=== PATIENT | female | born 1955 | race Caucasian/White ===

== ENCOUNTER → 2018-02-17 | Outpatient (CLI) | payer OTHER ==
[~2018-02-17] MED LIST: LEVSOD100 PO; LISI20 PO; LORA10 PO; LOSA50 PO; RANI150 PO; VALA500 PO; VITAMIN D3400 UNIT PO
== END ==
LOC: LAB SHORT 11:47 → LAB 11:47
PROVIDERS: Registered Nurse Community Health
DX: Z01.419 Encounter for gynecological examination (general) (routine) without abnormal findings (principal); R87.4 Abnormal immunological findings in specimens from female genital organs; Z12.4 Encounter for screening for malignant neoplasm of cervix
CPT/HCPCS: 87624; G0123

== ENCOUNTER 2018-03-27 17:50 | Observation (INO) | payer OTHER ==
[~2018-03-27] VITALS: Ht 157.5 cm; Wt 56.1 kg
[~2018-03-27 17:50] MED LIST changes: -LEVSOD100 PO; +LEVSOD50 PO; -RANI150 PO; +Zantac150 MG PO
[2018-03-27 18:59] LABS: BASOPHILS PERCENT AUTO 1 % (0-2); EOSINOPHILS ABSOLUTE AUTO 0.13 K/mm3 (0.00-0.68); EOSINOPHILS PERCENT AUTO 1 % (0-6); Hematocrit 35.4 % (33.0-51.0); Hemoglobin 12.3 g/dL (11.5-16.0); IMMATURE GRAN ABSOLUTE AUTO 0.09 K/mm3 (0.00-0.10); IMMATURE GRAN PERCENT AUTO 1 % (0-1); LYMPHOCYTES ABSOLUTE AUTO 1.28 K/mm3 (0.84-5.20); LYMPHOCYTES PERCENT AUTO 14 % (21-46); MONOCYTES ABSOLUTE AUTO 0.83 K/mm3 (0.16-1.47); MONOCYTES PERCENT AUTO 9 % (4-13); Mean Corpuscular HGB 33.6 pg (26.0-34.0); Mean Corpuscular HGB Conc 34.7 g/dL (31.5-36.5); Mean Corpuscular Volume 97 fL (80-100); Mean Platelet Volume 8.3 fL (9.1-12.4); NEUTROPHILS ABSOLUTE AUTO 6.63 K/mm3 (1.96-9.15); NEUTROPHILS PERCENT AUTO 73 % (41-73); Platelet Count 356 K/mm3 (150-400); RDW Coefficient Variation 12.4 % (11.7-14.2); RDW Standard Deviation 44.3 fL (35.1-46.3); Red Blood Cell Count 3.66 M/mm3 (3.80-5.20); White Blood Cell Count 9.06 K/mm3 (4.00-11.30)
[2018-03-27 19:24] LABS: Alanine Aminotransfer (ALT/SGP 26 U/L (12-78); Albumin, Blood 4.3 g/dL (3.4-5.0); Albumin/Globulin Ratio 1.3 (0.8-1.8); Alk Phos 68 U/L (50-136); Anion Gap 12 mmol/L (6-16); Aspartate Aminotrans (AST/SGOT 23 U/L (12-37); Bilirubin, Total 0.3 mg/dL (0.1-1.0); Blood Urea Nitrogen 6 mg/dL (8-24); Bun/Creatinine Ratio 11.3 (12.0-20.0); CO2, Blood 24 mmol/L (21-32); Calcium, Blood 8.3 mg/dL (8.5-10.1); Chloride, Blood 94 mmol/L (98-108); Creatinine, Blood 0.53 mg/dL (0.40-1.00); Globulin, Blood 3.3 g/dL (2.2-4.0); Glomerular Filtration Rate >60 (60-); Glucose, Blood 101 mg/dL (70-99); Potassium, Blood 3.5 mmol/L (3.5-5.5); Sodium, Blood 130 mmol/L (136-145); Total Protein, Blood 7.6 g/dL (6.4-8.2)
[2018-03-28] MEDS ORDERED: PHOSOMAX (00:56)
[2018-03-30] MEDS ORDERED: OXYC5 PO (15:29)
[2018-03-30] MEDS ORDERED: CEPH500 PO (15:30)
== END 2018-03-30 17:23 | disposition home or self-care (01) ==
LOC: ER 17:50 → SURS 17:51
PROVIDERS: Emergency Medicine; Orthopaedic Surgery
PROC: 0PH Upper Bones, Insertion (ICD-10-PCS; principal; 2018-03-27 20:00)
PROC: 0PSH04Z Reposition Right Radius with Internal Fixation Device, Open Approach (ICD-10-PCS; principal; 2018-03-27 20:00)
DX: S52.571B Other intraarticular fracture of lower end of right radius, initial encounter for open fracture type I or II (principal); S52.601B Unspecified fracture of lower end of right ulna, initial encounter for open fracture type I or II; E87.1 Hypo-osmolality and hyponatremia; E03.9 Hypothyroidism, unspecified; Z87.891 Personal history of nicotine dependence; W10.9XXA Fall (on) (from) unspecified stairs and steps, initial encounter
CPT/HCPCS: 29105; 73100; 73120; 80053; 85025; 90471; 90714; 94640; 96374; 99285; C1713; G0378; J0330; J0690; J1100; J1885; J2001; J2250; J2370; J2405; J2710; J2765; J3010; J7120

== ENCOUNTER → 2019-03-22 | Outpatient (CLI) | payer OTHER ==
[~2019-03-22] MED LIST changes: +ACET500 PO; +ASCO500 PO; +ASPI325EC PO; +BIOTIN PO; +CEPH500 PO; +Cefadroxil500 MG PO; +Echinacea400 MG PO; +FOSAMAX PO; +LEVFLO500 PO; +MAGNESIUM PO; +METO50ER PO; +Milk Thistle175 M1 PO; +NAPR500 PO; +NATURAL LUTEIN20 MG PO; +Norco 5-325 Ta1 EACH PO; +ONDA4ODT MM; +OXYC5 PO; +ROXICODONE5 MG PO; +Vitamin A8000 UNIT PO; +Zanaflex4 M1 PO
[2019-03-22 15:55] LABS: Creatinine, Urine Random 30.1 mg/dL (27.00-270.00); Protein, Urine Random 6.6 mg/dL (0.0-11.9)
== END | disposition home or self-care (01) ==
LOC: LAB SHORT 14:39 → LAB 14:39
PROVIDERS: Internal Medicine
DX: E87.1 Hypo-osmolality and hyponatremia (principal)
CPT/HCPCS: 82570; 83935; 84156; 84300

== ENCOUNTER 2019-03-27 08:30 | Inpatient (IN) | payer OTHER, SELFPAY ==
[~2019-03-27] VITALS: Ht 157.5 cm; Wt 50.6 kg
[~2019-03-27 08:30] MED LIST changes: -ACET500 PO; -ASPI325EC PO; -Cefadroxil500 MG PO; -LEVFLO500 PO; -METO50ER PO; -ROXICODONE5 MG PO
--- NOTE | 2019-03-27 09:23 | NUR ---
History, Chart, Medications and Allergies reviewed before start of procedure. Patient confirms NPO status and agrees with scheduled surgery. Patient wretching. No emesis. Patient denies feeling sick. States this is from fasting and her noraml response to pain and stress. Dr. Mendiola called to request antiemetic. Antiemetic given IV.
--- NOTE | 2019-03-27 09:44 | NUR ---
PATIENT STATES SHE FEELS NO RELIEF OF NAUESEA. DR BUITRAGO CALLED. WILL GIVE ADDITIONAL ANTIEMETIC PER ORDER.
--- NOTE | 2019-03-27 09:51 | NUR ---
PATIENT NO LONGER WRETCHING. STATES SHE IS STARTING TO FEEL SOME RELIEF OF NAUSEA.
--- NOTE | 2019-03-27 10:14 | NUR ---
NOZIN NASAL CHIEF SECURITY AND SAFETY OFFICER X3 AMPULES TO NARES BILAT.
--- NOTE | 2019-03-27 17:56 | NUR ---
shift summary: post op vital signs stable and continuing, no n/v, a/o x 4, pleasant/cooperative. pt rates pain at 2-3/10 per mar. pt tolerated PO intake, is saline lock. r hip aquacel dressing c/d/i, no shadowing. PT was unable to evaluate/treat pt this shift, will be treated tomorrow.
--- NOTE | 2019-03-28 04:29 | NUR ---
SHIFT SUMMARY PT A&O X4 T/O SHIFT. POD#0 R AYALA; DRESSING TO R HIP CDI. CRYPTHERAPY TO R HIP. PAIN MANAGED PER EMAR. NAUSESA MANAGED PER EMAR; SEVERAL EPISODES OF SMALL VOLUME EMESIS; PT REPORTS BASELINE FOR HER WHEN SHE TAKES PAIN MEDICATIONS. RA; PT DENIES SOB AND CP T/O SHIFT. SCD'S AND KHT'S TO BLE'S. CALL LIGHT IN REACH; PT DEMONSTRATES USE. WCTM UNTIL REPORT TO DAY SHIFT RN.
[2019-03-28 04:59] LABS: BASOPHILS ABSOLUTE AUTO 0.01 K/mm3 (0.00-0.23); BASOPHILS PERCENT AUTO 0 % (0-2); EOSINOPHILS PERCENT AUTO 0 % (0-6); Hemoglobin 9.1 g/dL (11.5-16.0); IMMATURE GRAN ABSOLUTE AUTO 0.09 K/mm3 (0.00-0.10); IMMATURE GRAN PERCENT AUTO 1 % (0-1); LYMPHOCYTES ABSOLUTE AUTO 0.99 K/mm3 (0.84-5.20); LYMPHOCYTES PERCENT AUTO 6 % (21-46); MONOCYTES ABSOLUTE AUTO 1.39 K/mm3 (0.16-1.47); MONOCYTES PERCENT AUTO 9 % (4-13); Mean Corpuscular HGB 33.3 pg (26.0-34.0); Mean Corpuscular HGB Conc 33.7 g/dL (31.5-36.5); Mean Corpuscular Volume 99 fL (80-100); Mean Platelet Volume 8.8 fL (9.1-12.4); NEUTROPHILS ABSOLUTE AUTO 13.41 K/mm3 (1.96-9.15); NEUTROPHILS PERCENT AUTO 84 % (41-73); Platelet Count 333 K/mm3 (150-400); RDW Coefficient Variation 12.1 % (11.7-14.2); RDW Standard Deviation 43.7 fL (35.1-46.3); Red Blood Cell Count 2.73 M/mm3 (3.80-5.20); White Blood Cell Count 15.89 K/mm3 (4.00-11.30)
[2019-03-28 05:17] LABS: Anion Gap 8 mmol/L (6-16); Blood Urea Nitrogen 7 mg/dL (8-24); Bun/Creatinine Ratio 14.5 (12.0-20.0); CO2, Blood 26 mmol/L (21-32); Calcium, Blood 7.8 mg/dL (8.5-10.1); Chloride, Blood 95 mmol/L (98-108); Creatinine, Blood 0.48 mg/dL (0.40-1.00); Glomerular Filtration Rate >60 (60-); Glucose, Blood 146 mg/dL (70-99); Magnesium, Blood 1.6 mg/dL (1.6-2.4); Potassium, Blood 3.6 mmol/L (3.5-5.5); Sodium, Blood 129 mmol/L (136-145)
--- NOTE | 2019-03-28 06:50 | NUR ---
RECVD REPORT FROM PREVIOUS RN JESSEE, PT UP IN CHAIR READING, A/0 X 4, PLEASANT/COOPERATIVE, AMBULATED IN HALLWAY FOLLOWING DRESSING HERSELF, REPORTS PAIN AT 2/10, CALL LIGHT WITHI REACH
--- NOTE | 2019-03-28 09:28 | NUR ---
PT WORKING IN ORTHOPEDIC GYM WITH PHYSICAL THERAPIST
[2019-03-28] MEDS ORDERED: ASPI325EC PO (11:06)
[2019-03-28] MEDS ORDERED: ACET500 PO (11:06)
[2019-03-28] MEDS ORDERED: ROXICODONE5 MG PO (11:07)
--- NOTE | 2019-03-28 11:40 | NUR ---
pt provided with discharge instructions, printed material and prescription for pain medication. pt escorted to awaiting vehicle via wheelchair following removal of peripheral iv wnl. pt's belongings taken to awaiting vehicle by her friend
--- NOTE | 2019-03-29 09:53 | NUR ---
03/29/19 0953 Shadia Raymundo VERIFICATIONS: EDIT CHART.
[2019-05-29] MEDS ORDERED: LEVFLO500 PO (10:39)
[2019-05-29] MEDS ORDERED: Cefadroxil500 MG PO (17:24)
[2019-05-29] MEDS ORDERED: METO50ER PO (17:44)
== END 2019-03-28 11:48 | disposition home or self-care (01) | DRG 470 ==
LOC: SURS 08:30 → PRE IP 11:30 → SURS 14:31
PROVIDERS: ADMIT Orthopaedic Surgery
PROC: 0SR904A Replacement of Right Hip Joint with Ceramic on Polyethylene Synthetic Substitute, Uncemented, Open Approach (ICD-10-PCS; principal; 2019-03-27 11:30)
DX: M16.11 Unilateral primary osteoarthritis, right hip (principal); E87.1 Hypo-osmolality and hyponatremia; D62 Acute posthemorrhagic anemia; K21.9 Gastro-esophageal reflux disease without esophagitis; I10 Essential (primary) hypertension; E03.9 Hypothyroidism, unspecified; Z88.2 Allergy status to sulfonamides; Z88.8 Allergy status to other drugs, medicaments and biological substances; Z79.899 Other long term (current) drug therapy; Z87.891 Personal history of nicotine dependence
CPT/HCPCS: 36415; 72170; 80048; 83735; 85025; 88300; 97110; 97116; 97162; 97530; C1776; J0171; J0690; J0735; J1100; J1885; J2250; J2405; J2550; J2704; J2765; J2795; J3010; J7050; J7120

== ENCOUNTER 2019-05-23 11:24 | Inpatient (IN) | payer OTHER ==
[~2019-05-23 11:24] MED LIST changes: +ACET500 PO; +ASPI325EC PO; +ROXICODONE5 MG PO
[2019-05-23 12:26] LABS: Hematocrit 43.2 % (33.0-51.0); Hemoglobin 14.6 g/dL (11.5-16.0); Mean Corpuscular HGB 34.3 pg (26.0-34.0); Mean Corpuscular HGB Conc 33.8 g/dL (31.5-36.5); Mean Corpuscular Volume 101 fL (80-100); Mean Platelet Volume 8.5 fL (9.1-12.4); Platelet Count 417 K/mm3 (150-400); RDW Coefficient Variation 12.1 % (11.7-14.2); RDW Standard Deviation 45.2 fL (35.1-46.3); Red Blood Cell Count 4.26 M/mm3 (3.80-5.20); White Blood Cell Count 8.33 K/mm3 (4.00-11.30)
--- NOTE | 2019-05-23 12:35 | NUR ---
Ambulatory in Day Surgery History, Chart, Medications and Allergies reviewed before start of procedure.Lungs clear T/O to Auscultation. Patient confirms NPO status and agrees with scheduled surgery. BELONINGS STORED UNDER BED EXCEPT BILAT HEARING AIDES AND GLASSES IN PACU.
[2019-05-23 12:45] LABS: Anion Gap 8 mmol/L (6-16); Blood Urea Nitrogen 9 mg/dL (8-24); Bun/Creatinine Ratio 22.1 (12.0-20.0); CO2, Blood 26 mmol/L (21-32); Calcium, Blood 10.5 mg/dL (8.5-10.1); Chloride, Blood 102 mmol/L (98-108); Creatinine, Blood 0.41 mg/dL (0.40-1.00); Glomerular Filtration Rate >60 (60-); Glucose, Blood 106 mg/dL (70-99); Potassium, Blood 4.1 mmol/L (3.5-5.5); Sodium, Blood 136 mmol/L (136-145)
--- NOTE | 2019-05-23 19:20 | NUR ---
SHIFT SUMMARY PT HAS BEEN DOING WELL UP UNTIL APPROX 30 MINS AGO WHEN SHE BEGAN C/O SPASMS TO HER BACK AND INCREASE IN PAIN. ORTHO CALLED FOR NEW ORDERS.
[2019-05-24 04:28] LABS: BASOPHILS ABSOLUTE AUTO 0.03 K/mm3 (0.00-0.23); BASOPHILS PERCENT AUTO 0 % (0-2); EOSINOPHILS PERCENT AUTO 0 % (0-6); Hematocrit 40.2 % (33.0-51.0); Hemoglobin 13.7 g/dL (11.5-16.0); IMMATURE GRAN ABSOLUTE AUTO 0.05 K/mm3 (0.00-0.10); IMMATURE GRAN PERCENT AUTO 0 % (0-1); LYMPHOCYTES ABSOLUTE AUTO 0.86 K/mm3 (0.84-5.20); LYMPHOCYTES PERCENT AUTO 7 % (21-46); MONOCYTES ABSOLUTE AUTO 0.92 K/mm3 (0.16-1.47); MONOCYTES PERCENT AUTO 7 % (4-13); Mean Corpuscular HGB 34.3 pg (26.0-34.0); Mean Corpuscular HGB Conc 34.1 g/dL (31.5-36.5); Mean Corpuscular Volume 101 fL (80-100); Mean Platelet Volume 9.1 fL (9.1-12.4); NEUTROPHILS ABSOLUTE AUTO 11.05 K/mm3 (1.96-9.15); NEUTROPHILS PERCENT AUTO 86 % (41-73); Platelet Count 393 K/mm3 (150-400); RDW Coefficient Variation 11.9 % (11.7-14.2); RDW Standard Deviation 45.1 fL (35.1-46.3); Red Blood Cell Count 3.99 M/mm3 (3.80-5.20); White Blood Cell Count 12.91 K/mm3 (4.00-11.30)
[2019-05-24 04:47] LABS: Anion Gap 8 mmol/L (6-16); Blood Urea Nitrogen 13 mg/dL (8-24); Bun/Creatinine Ratio 29.1 (12.0-20.0); CO2, Blood 26 mmol/L (21-32); Calcium, Blood 9.9 mg/dL (8.5-10.1); Chloride, Blood 99 mmol/L (98-108); Creatinine, Blood 0.45 mg/dL (0.40-1.00); Glomerular Filtration Rate >60 (60-); Glucose, Blood 123 mg/dL (70-99); Sodium, Blood 133 mmol/L (136-145)
--- NOTE | 2019-05-24 11:01 | NUR ---
NAUSEA PT STATES NAUSEA SLIGHTLY BETTER; ABLE TO TAKE SIPS WITHOUT EMESIS. DECLINES TAKING PO PILLS AT THIS TIME INCLUDING METOPROLOL
--- NOTE | 2019-05-24 16:08 | NUR ---
05/24/19 1608 Annelise Julien VERIFICATIONS, AUDITS.
--- NOTE | 2019-05-24 19:53 | NUR ---
SHIFT SUMMARY PT STRUGGLED WITH N/V T/O SHIFT. PAIN MANAGED W/ NON-PHARM.
--- NOTE | 2019-05-25 01:19 | NUR ---
PT WITH CONTINUED HTN AND ACTUALLY BP HIGHER AFTER PRN HYDRALAZINE.FOLLOW UP VS @ 2343 BP 193/119 HEART RATE 107.BP CK WAS DONE TWICE TO CONFIRM.PTS CWA @[address] MOLINA AND ADVISED OF ABOVE. ORDERED IV LABETOLOL 10 MG WELL TELE WHICH IS REQUIRED FOR FOR THIS MED.SEE VS DIRECTLY AFTER AND WILL BE REPEATED.
--- NOTE | 2019-05-25 06:04 | NUR ---
SUMMARY PT REPORTS FEELING BETTER THIS AM. EMESIS X1 ONLY THIS SHIFT. BP IMPROVING.
--- NOTE | 2019-05-25 14:46 | NUR ---
DR MOREL IN TO SEE PT.
--- NOTE | 2019-05-25 23:29 | NUR ---
2134 ARCHEOLOGY PROFESSOR DIONICIO CONTRERAS NOTED HEART RATE 130-140 SUSTAINING 2154 CALL OUT TO HOSPITALIST ZEINAB WAITING RETURN CALL.2209 HEART RATE DECLINED TO 116, BUT TECH NOTED PT NOW IN AFIB. PT WITHOUT COMPLAINT.SECOND CALL OUT TO HOSPITALIST WAITING RETURN CALL. 2309 NO RETURN CALL PER HOSPITALIST COVERING TIL 2299. PLACED CALL OUT TO [address] MOLINA BUT VOICE MAIL STATES MAIL BOX IS FULL AND UNABLE TO ACCEPT MESSAGES. I CALLED NURSING SUPERVISER FOR ASSIST REACHING HOSPITALIST PT HEART RATE INCREASING TO 150 REPORTED PER ARCHEOLOGY PROFESSOR AND HOSPITALIST NOT INE ER,ICU,PCU.SUPERVISER NOTIFIED ME THAT SHE WAS ABLE TO REACH ZEINAB AND ZEINAB WOULD BE CALLING ME REGARDING THIS PT. I SPOKE WITH ZEINAB. GAVE CURRENT VS AND DISCUSSED ABOVE.12 LEAD EKG ORDERED AND IV METOPROLOL. PT DIAPHORETIC.
[2019-05-26 00:23] LABS: BASOPHILS ABSOLUTE AUTO 0.08 K/mm3 (0.00-0.23); BASOPHILS PERCENT AUTO 1 % (0-2); EOSINOPHILS ABSOLUTE AUTO 0.12 K/mm3 (0.00-0.68); EOSINOPHILS PERCENT AUTO 1 % (0-6); Hematocrit 44.5 % (33.0-51.0); Hemoglobin 15.3 g/dL (11.5-16.0); IMMATURE GRAN ABSOLUTE AUTO 0.04 K/mm3 (0.00-0.10); IMMATURE GRAN PERCENT AUTO 1 % (0-1); LYMPHOCYTES ABSOLUTE AUTO 1.64 K/mm3 (0.84-5.20); LYMPHOCYTES PERCENT AUTO 19 % (21-46); MONOCYTES ABSOLUTE AUTO 0.99 K/mm3 (0.16-1.47); MONOCYTES PERCENT AUTO 11 % (4-13); Mean Corpuscular HGB 34.3 pg (26.0-34.0); Mean Corpuscular HGB Conc 34.4 g/dL (31.5-36.5); Mean Corpuscular Volume 100 fL (80-100); Mean Platelet Volume 8.4 fL (9.1-12.4); NEUTROPHILS PERCENT AUTO 68 % (41-73); Platelet Count 444 K/mm3 (150-400); RDW Standard Deviation 44.8 fL (35.1-46.3); Red Blood Cell Count 4.46 M/mm3 (3.80-5.20); White Blood Cell Count 8.87 K/mm3 (4.00-11.30)
[2019-05-26 00:47] LABS: Alanine Aminotransfer (ALT/SGP 19 U/L (12-78); Alk Phos 75 U/L (50-136); Anion Gap 11 mmol/L (6-16); Aspartate Aminotrans (AST/SGOT 14 U/L (12-37); Bilirubin, Total 0.4 mg/dL (0.1-1.0); Blood Urea Nitrogen 11 mg/dL (8-24); Bun/Creatinine Ratio 20.3 (12.0-20.0); CO2, Blood 27 mmol/L (21-32); Chloride, Blood 95 mmol/L (98-108); Creatinine, Blood 0.54 mg/dL (0.40-1.00); Glomerular Filtration Rate >60 (60-); Glucose, Blood 142 mg/dL (70-99); Potassium, Blood 3.3 mmol/L (3.5-5.5); Sodium, Blood 133 mmol/L (136-145)
--- NOTE | 2019-05-26 02:03 | NUR ---
PT RECEIVED METOPROLOL 5 MG IV PER ORDER WELL RECEIVING ATIVAN 1MG CURRENTLY PT IS ASLEEP WITH BP 166/109 HEART RATE TRENDING UP FROM [address] MOLINA AND RECEIVED ORDER FOR IV LABETOLOL 10 MG IV X1.
--- NOTE | 2019-05-26 03:19 | NUR ---
LABETALOL WAS GIVEN WITH IMPROVEMENT NOTED.BP 140/97 PULSE 100 DIRECTLY AFTER DOSE. CURRENTLY HEART RATE LOW 98.PT REPORTS COMFORTABLE AND DOZING.
--- NOTE | 2019-05-26 06:23 | NUR ---
SUMMARY PTS HEART RATE HAS GONE UP TO 114-116 PER TELE. WILL CONT TO MONITOR AND WILL NEED TO HAVE ANESTHESIA NOTIFIED THIS AM OF EVENTS OCCURING DURING NIGHT PRIOR TO FURTHER PROCEDURE TODAY.PT REMAINS NPO. RESTS QUIETLY.
--- NOTE | 2019-05-26 08:32 | NUR ---
HR 172. TELE CALLED AND REPORTED HR OF 172. TOOK VS: BP 140/93, 02 SATS 97% RA, TEMP 98.0. ADMINISTERED IV LOPRESSOR PER ORDERS. HR NOW DOWN TO [address] FRIEDMAN TO REPORT. NO NEW ORDERS. MEI W/DR ENGLAND OFFICE, AWAITING CALL BACK TO UPDATE.
--- NOTE | 2019-05-26 08:58 | NUR ---
SPOKE TO DR ENGLAND OFFICE REGARDING PT'S HR OFFICE WILL RELAY MSG TO DR ENGLAND; SHE IS CURRENTLY IN OR.
--- NOTE | 2019-05-26 14:19 | NUR ---
pt to OR
--- NOTE | 2019-05-26 14:22 | NUR ---
INTO SDS VIA [employer]. PT A&OX3. DENIES PAIN OR NAUSEA. HISTORY AND ALLERGIES REVIEWED. LUNGS CLEAR. NPO STATUS CONFIRMED. HR TRENDING 110'S AF. BP TRENDING 190'S/100'S. DR. QUIROGA MADE AWARE-PT MED WITH METOPROLOL 5 MG IVP X 1. DRESSING TO RIGHT HIP C/D/I.
--- NOTE | 2019-05-26 14:33 | NUR ---
BP 171/115 AND HR 110'S AFTER LOPRESSOR 5 MG IVP X 1. HYDRALAZINE 10 MG IVP X1 GIVEN.
--- NOTE | 2019-05-26 15:06 | NUR ---
DR. QUIROGA HERE TO SEE PT. UPDATED TO CURRENT VS AND MEDS GIVEN FOR BOTH HR AND BP. PT TEARFUL VERBALIZED CONCERN FOR PROCEDING WITH SURGERY WITH AF WITH RVR.
--- NOTE | 2019-05-26 15:23 | NUR ---
DR. ENGLAND CONSULTED DR. MENDEZ REGARDING AF WITH RVR- HR 100-130'S AND HYPERTENSION. DR. MENDEZ ALSO MADE AWARE THAT PT APPEARS ANXIOUS. PT MED WITH METOPROLOL 5 MG IVP X 1 AND METOPROLOL 25 MG PO X 1 FOR HR AND BP. ALSO, PT MED WITH ATIVAN 2 MG IVP X 1 FOR ANXIETY.
--- NOTE | 2019-05-26 15:52 | NUR ---
ASSUMED CARE OF PATIENT AT THIS TIME. PT IN DAY SURGERY AWAITING OR FOR I+D.
--- NOTE | 2019-05-26 15:57 | NUR ---
reported off to wicho nowak rn
--- NOTE | 2019-05-26 16:07 | NUR ---
HR CONTINUES TO TREND 90-120'S. BP 181/121-ADDITIONAL METOPROLOL 5 MG IVP X 1 GIVEN PER ORDER. PT DENIES ANXIETY AT THIS TIME. PT SLEEPING INTERMITTENTLY WHEN NOT DISTURBED-HR 90'S WHEN PT SLEEPING.
--- NOTE | 2019-05-26 16:51 | NUR ---
HR CONTINUES TO TREND IN THE 120'S AF. DR. FRIEDMAN UPDATED TO CURRENT VS AND STATUS. ORDERS GIVEN TO TRANSFER PT TO PCU AND GIVE CARDIZEM BOLUS AND DRIP-SEE EMAR.
--- NOTE | 2019-05-26 17:00 | NUR ---
PT PLAN TO TRANSFER TO PCU R/T AFIB WITH RVR IN DAY SURGERY AREA. BELONGINGS FROM ROOM TAKEN TO PCU ROOM 4.
--- NOTE | 2019-05-26 17:03 | NUR ---
REPORT GIVEN TO GABRIELA RAMIREZ IN PREP TO TRANSFER PT TO PCU4.
--- NOTE | 2019-05-26 19:30 | NUR ---
SHIFT SUMMRY. PT ARRIVED FROM DAY SURGERY APROX 1745. PT WAS IN AFIB RVR IN THE 130'S AND HYPERTENSIVE. PT WAS STARTED ON CARDIZEM GTT AT 10MG/HR AND A 10MG IV PUSH. PT CONVERTED TO NSR WITH IN 10 MINUTES OF STARTING THE GTT. PT'S BP IMPROVED. PT DENIED CHEST PAIN/PRESSURE, N/V OR SOB. PT'S VS STABLE. PT IS TO BE NPO AT MIDNIGHT FOR SURGERY IN THE AM. CALL LIGHT IN REACH, BED IS LOCKED AND LOW WILL CONTINUE TO MONITOR UNTIL REPORT IS GIVEN TO ONCOMING RN
--- NOTE | 2019-05-27 03:26 | NUR ---
SHIFT SUMMARY: PATIENT INDEPENDENT AROUND HOSPITAL, HR REMAINS NSR-CARDISEM OFF SINCE PREVIOUS SHIFT. NO OTHER ISSUES NOTED, VSS, BED LOW AND LOCKED, CALL LIGHT WITHIN REACH.
[2019-05-27 04:36] LABS: Albumin, Blood 3.3 g/dL (3.4-5.0); Anion Gap 8 mmol/L (6-16); Blood Urea Nitrogen 14 mg/dL (8-24); Bun/Creatinine Ratio 25.7 (12.0-20.0); CO2, Blood 26 mmol/L (21-32); Calcium, Blood 8.5 mg/dL (8.5-10.1); Chloride, Blood 100 mmol/L (98-108); Creatinine, Blood 0.54 mg/dL (0.40-1.00); Glomerular Filtration Rate >60 (60-); Glucose, Blood 106 mg/dL (70-99); Potassium, Blood 3.8 mmol/L (3.5-5.5); Sodium, Blood 134 mmol/L (136-145)
[2019-05-27 10:15] LABS: BODY FLUID RBC 0.008 (0-0); RBC Count, Synovial Fluid 8000 /mm3 (0-0); WBC Count, Synovial Fluid 2204 /mm3 (0-180)
[2019-05-27 11:03] LABS: Appearance, Synovial Fluid Hazy (Clear); Color, Synovial Fluid Yellow (None-P Yel)
[2019-05-27 11:10] LABS: Eos, Synovial Fluid 2 % (0-2); Lymphs, Synovial Fluid 47 % (0-15); Monocytes/Macrophages, Synovia 44 % (0-65); Neutrophils, Synovial Fluid 7 % (0-24)
--- NOTE | 2019-05-27 11:40 | NUR ---
PT HERE FROM PACU ON BED. PT HAS WOUND VAC TO R HIP AREA THAT APPEARS WNL. PT FEMALE VEGETABLE CANNER PLACED TELE IN PLACE. PT REPORTED TO NOT HAVE MALE RN BEFORE BUT THAT IT WOULD BE OK FOR THIS RN TO BE HER NURSE. PPX4. WIGGLES TOES, MOVES ALL EXT. PT HAS PAS IN PLACE. PT A/O, SPEECH CLEAR.
--- NOTE | 2019-05-27 13:15 | NUR ---
RADARMAN REPORTED TO THIS RN AND ROUTING CLERK THAT THE PT DID NOT WISH TO HAVE A MALE RN. PT REPORTED EARLIER THAT THEY HAD NEVER HAD A MALE RN BEFORE BUT WAS OK WITH IT AND AFTER THINKING ON IT NO LONGER WISHES TO HAVE A MALE RN. ROUTING CLERK Cecilia GIVEN REPORT AND IS TAKING OVER CARE AT THIS TIME.
--- NOTE | 2019-05-27 13:26 | NUR ---
updated staff on wound vac need for wednesday. notified care management.
--- NOTE | 2019-05-27 16:57 | NUR ---
SHIFT SUMMARY PT POD 0 I&D R HIP. WOUND VAC IN PLACE, FOAM COMPRESSED, SCANT AMT SANGUINOUS FLUID PRESENT IN CANISTER. PT INDEPENDENT, AMBULATING IN HALLWAY PUSHING WOUND VAC IN WHEELCHAIR. PT CIWA SCORE 5, GETS VERY ANXIOUS AND TEARFUL AT TIMES. PLAN IS TO DC WEDNESDAY WITH HOME WOUND VAC.
--- NOTE | 2019-05-28 06:39 | NUR ---
SUMMARY NO ACUTE CHANGES NOTED THROUGH THE NIGHT. WOUND VAC REMAINS INTACT. PT STATES PAIN IS WNL. NO PAIN MEDS REQUIRED. ATIVAN GIVEN X1. PT IS INDEPENDENT IN THE ROOM AND CALLS FOR ASSISTANCE APPROPRIATLY. CALL LIGHT IN REACH
[2019-05-28 07:19] LABS: Hematocrit 37.8 % (33.0-51.0); Hemoglobin 12.8 g/dL (11.5-16.0); Mean Corpuscular HGB 34.7 pg (26.0-34.0); Mean Corpuscular HGB Conc 33.9 g/dL (31.5-36.5); Mean Corpuscular Volume 102 fL (80-100); Platelet Count 421 K/mm3 (150-400); RDW Coefficient Variation 11.7 % (11.7-14.2); RDW Standard Deviation 44.1 fL (35.1-46.3); Red Blood Cell Count 3.69 M/mm3 (3.80-5.20); White Blood Cell Count 8.53 K/mm3 (4.00-11.30)
--- NOTE | 2019-05-28 17:28 | NUR ---
SHIFT SUMMARY PT POD 1 I&D R HIP W/PLACEMENT OF WOUND VAC. PT HAS CONTINUED TO DENY PAIN THIS SHIFT. HAS NOT REQUIRED ATIVAN FOR ANXIETY, NEGATIVE CIWA SCORE. INDEPENDENT IN AMBULATION IN HALLWAY. PLAN IS TO DC HOME TOMORROW WITH HOME WOUND VAC.
--- NOTE | 2019-05-29 04:53 | NUR ---
SHIFT SUMMARY PT RESTING WELL THIS AM. AAOX4/ANXIOUS. DISCOMFORT AT TOLERABLE LEVEL T/O NIGHT, NO NAUSEA/EMESIS. WOUND VAC TO RIGHT HIP C/D/I WITH MINIMAL DRAINAGE OUT. PPP, DENIES N/T, MOVES TOES WELL BLE. PT UP IN HALLS INDEPENDENTLY WITH WOUND VAC IN WHEELCHAIR, TOLERATES WELL. HTN NOTED THIS SHIFT WITH ELEVATED ANXIETY. PT WAS MEDICATED FOR ANXIETY + FELL ASLEEP POST MEDICATION, WILL CONTINUE TO ASSESS VS. PT RESTING AT THIS TIME WITH CALL LIGHT IN REACH.
--- NOTE | 2019-05-29 09:22 | NUR ---
05/29/19 0922 Shadia Raymundo VERIFICATIONS: EDIT CHART.
[2019-05-29 09:45] LABS: Albumin, Blood 3.8 g/dL (3.4-5.0); Anion Gap 6 mmol/L (6-16); Blood Urea Nitrogen 14 mg/dL (8-24); Bun/Creatinine Ratio 24.3 (12.0-20.0); CO2, Blood 27 mmol/L (21-32); Calcium, Blood 9.1 mg/dL (8.5-10.1); Chloride, Blood 101 mmol/L (98-108); Creatinine, Blood 0.58 mg/dL (0.40-1.00); Glomerular Filtration Rate >60 (60-); Glucose, Blood 88 mg/dL (70-99); Phosphorus, Blood 3.9 mg/dL (2.5-4.9); Potassium, Blood 4.1 mmol/L (3.5-5.5); Sodium, Blood 134 mmol/L (136-145)
[2019-05-29] MEDS ORDERED: LEVFLO500 PO ×2 (10:39)
--- NOTE | 2019-05-29 14:19 | NUR ---
PT TEARFUL ANXIOUS TO GO HOME. AWAITING HOME WOUND VAC APPROVAL.
[2019-05-29] MEDS ORDERED: Cefadroxil500 MG PO ×2 (17:24)
[2019-05-29] MEDS ORDERED: METO50ER PO ×2 (17:44)
--- NOTE | 2019-05-29 18:19 | NUR ---
DISCHARGED PT CHANGING INTO STREET CLOTHES. REVIEWED DC PAPERWORK; PT VERBALIZED UNDERSTANDING. NO IV ACCESS. REC'D 1700 DOSE OF LEVAQUIN PER ORDERS. CALLED PRESCRIPTIONS TO [facility] PER PT REQUEST. CHANGED WOUND VAC TO HOME UNIT. WILL ASSIST PT TO TAKE POSSESSIONS, DC PAPERWORK AND WOUND VAC SUPPLIES TO CAR.
== END 2019-05-29 18:31 | disposition home health service (06) | DRG 857 ==
LOC: ORSCMMR 11:24 → SURS 11:24 → ORSCMMR 11:25 → ORD 12:30 → SURS 14:24 → PCU 14:25 → ORSCMMR 14:25 → SURS 14:25 → PCU 05-26 17:22 → SURS 05-27 10:27
PROVIDERS: Anesthesiology; Internal Medicine; Nurse Practitioner Acute Care; ADMIT Orthopaedic Surgery
PROC: 0JBL0ZZ Excision of Right Upper Leg Subcutaneous Tissue and Fascia, Open Approach (ICD-10-PCS; principal; 2019-05-23 12:30)
PROC: 0JBL0ZZ Excision of Right Upper Leg Subcutaneous Tissue and Fascia, Open Approach (ICD-10-PCS; 2019-05-27)
DX: T81.42XA Infection following a procedure, deep incisional surgical site, initial encounter (principal); E87.1 Hypo-osmolality and hyponatremia; L76.34 Postprocedural seroma of skin and subcutaneous tissue following other procedure; K21.9 Gastro-esophageal reflux disease without esophagitis; I10 Essential (primary) hypertension; E03.9 Hypothyroidism, unspecified; M81.0 Age-related osteoporosis without current pathological fracture; Z91.19 Patient's noncompliance with other medical treatment and regimen; F10.20 Alcohol dependence, uncomplicated; I48.0 Paroxysmal atrial fibrillation; B95.2 Enterococcus as the cause of diseases classified elsewhere; B95.8 Unspecified staphylococcus as the cause of diseases classified elsewhere; E87.6 Hypokalemia
CPT/HCPCS: 36415; 73701; 80048; 80053; 80069; 83735; 85025; 85027; 85651; 86140; 87040; 87070; 87075; 87077; 87186; 87205; 89051; 93005; 93010; J0360; J0690; J1100; J1885; J1956; J2060; J2250; J2370; J2405; J2550; J2704; J3010; J3480; J7050; J7120; Q0163; Q9967

== ENCOUNTER 2019-05-31 07:30 | Day surgery (SDC) | payer OTHER ==
[~2019-05-31 07:30] MED LIST changes: +Cefadroxil500 MG PO; +LEVFLO500 PO; +METO50ER PO
== END 2019-05-31 22:58 | disposition home or self-care (01) ==
LOC: WOUND 07:30
DX: T81.31XA Disruption of external operation (surgical) wound, not elsewhere classified, initial encounter (principal); L97.815 Non-pressure chronic ulcer of other part of right lower leg with muscle involvement without evidence of necrosis; I10 Essential (primary) hypertension; E03.9 Hypothyroidism, unspecified; I48.0 Paroxysmal atrial fibrillation; E87.6 Hypokalemia
CPT/HCPCS: G0463

== ENCOUNTER 2019-06-05 00:24 | Day surgery (SDC) | payer OTHER | END 2019-06-05 22:45 | disposition home or self-care (01) | LOC: WOUND 00:24 | DX: T81.31XA Disruption of external operation (surgical) wound, not elsewhere classified, initial encounter (principal); L97.815 Non-pressure chronic ulcer of other part of right lower leg with muscle involvement without evidence of necrosis; I10 Essential (primary) hypertension; I48.0 Paroxysmal atrial fibrillation ==

== ENCOUNTER 2019-06-15 09:30 | Day surgery (SDC) | payer OTHER ==
[~2019-06-15] VITALS: Ht 157.5 cm; Wt 53.9 kg
--- NOTE | 2019-06-15 10:37 | NUR ---
06/15/19 Dinora Calle CALL LIGHT WITHIN REACH
== END 2019-06-15 13:46 | disposition home or self-care (01) ==
LOC: ORSCSDS 09:30
PROVIDERS: Orthopaedic Surgery
PROC: 0YQ Anatomical Regions, Lower Extremities, Repair (ICD-10-PCS; principal; 2019-06-15 11:05)
DX: S71.101A Unspecified open wound, right thigh, initial encounter (principal); Z87.891 Personal history of nicotine dependence; E03.9 Hypothyroidism, unspecified; Z79.899 Other long term (current) drug therapy; Z79.82 Long term (current) use of aspirin
CPT/HCPCS: J0690; J2250; J2704; J3010; J7120

== ENCOUNTER → 2021-03-24 | Outpatient (CLI) | payer OTHER ==
[2021-03-24 13:47] LABS: BASOPHILS ABSOLUTE AUTO 0.07 K/mm3 (0.00-0.23); BASOPHILS PERCENT AUTO 1 % (0-2); EOSINOPHILS ABSOLUTE AUTO 0.04 K/mm3 (0.00-0.68); EOSINOPHILS PERCENT AUTO 1 % (0-6); Hematocrit 41.9 % (33.0-51.0); Hemoglobin 14.4 g/dL (11.5-16.0); IMMATURE GRAN ABSOLUTE AUTO 0.07 K/mm3 (0.00-0.10); IMMATURE GRAN PERCENT AUTO 1 % (0-1); LYMPHOCYTES ABSOLUTE AUTO 1.51 K/mm3 (0.84-5.20); LYMPHOCYTES PERCENT AUTO 17 % (21-46); MONOCYTES ABSOLUTE AUTO 0.91 K/mm3 (0.16-1.47); MONOCYTES PERCENT AUTO 10 % (4-13); Mean Corpuscular HGB 32.8 pg (26.0-34.0); Mean Corpuscular HGB Conc 34.4 g/dL (31.5-36.5); Mean Corpuscular Volume 95 fL (80-100); Mean Platelet Volume 9.4 fL (9.1-12.4); NEUTROPHILS ABSOLUTE AUTO 6.18 K/mm3 (1.96-9.15); NEUTROPHILS PERCENT AUTO 70 % (41-73); Platelet Count 269 K/mm3 (150-400); RDW Coefficient Variation 14.3 % (11.7-14.2); Red Blood Cell Count 4.39 M/mm3 (3.80-5.20); White Blood Cell Count 8.78 K/mm3 (4.00-11.30)
[2021-03-24 14:01] LABS: Alanine Aminotransfer (ALT/SGP 37 U/L (12-78); Albumin, Blood 4.1 g/dL (3.4-5.0); Albumin/Globulin Ratio 1.1 (0.8-1.8); Alk Phos 192 U/L (40-126); Anion Gap 14 mmol/L (6-16); Aspartate Aminotrans (AST/SGOT 33 U/L (12-37); Bilirubin, Total 0.9 mg/dL (0.1-1.0); Blood Urea Nitrogen 5 mg/dL (8-24); Bun/Creatinine Ratio 6.3 (12.0-20.0); CO2, Blood 24 mmol/L (21-32); Calcium, Blood 9.1 mg/dL (8.5-10.1); Chloride, Blood 93 mmol/L (98-108); Globulin, Blood 3.7 g/dL (2.2-4.0); Glomerular Filtration Rate >60 (60-); Glucose, Blood 103 mg/dL (70-99); Potassium, Blood 3.6 mmol/L (3.5-5.5); Sodium, Blood 131 mmol/L (136-145); Total Protein, Blood 7.8 g/dL (6.4-8.2); Troponin I <0.017 ng/mL (0.000-0.040)
== END | disposition home or self-care (01) ==
LOC: LAB SHORT 13:43 → PLD 13:43
PROVIDERS: Physician Assistant
DX: R07.9 Chest pain, unspecified (principal); R06.00 Dyspnea, unspecified
CPT/HCPCS: 80053; 84484; 85025; 85379